=== PATIENT | male | born 1965 | race Caucasian/White ===

== ENCOUNTER → 2024-06-14 06:39 | Day surgery (SDC) | payer OTHER, SELFPAY | LOC: GI 06:39 | PROVIDERS: ATTENDING PHYSICIAN Specialist | DX: Z12.11 Encounter for screening for malignant neoplasm of colon (principal); D12.2 Benign neoplasm of ascending colon | CPT/HCPCS: 45385; 88305 ==

== ENCOUNTER → 2024-12-20 12:26 | Outpatient (REF) | payer OTHER, SELFPAY | LOC: HWRAD 12:26 | PROVIDERS: ATTENDING PHYSICIAN Nurse Practitioner Family | DX: M25.511 Pain in right shoulder (principal) | CPT/HCPCS: 73030 ==

== ENCOUNTER 2025-03-14 06:25 | Outpatient (RCR) | payer OTHER, SELFPAY | END 2025-03-14 23:59 | disposition home or self-care (01) | LOC: RPT 06:25 | PROVIDERS: ATTENDING PHYSICIAN Nurse Practitioner Family; FAMILY PHYSICIAN Internal Medicine | DX: M25.511 Pain in right shoulder (principal); M75.81 Other shoulder lesions, right shoulder; Z73.6 Limitation of activities due to disability; M62.81 Muscle weakness (generalized) | CPT/HCPCS: 97010; 97110; 97112; 97140; 97162 ==

== ENCOUNTER 2025-04-12 14:02 | Outpatient (RCR) | payer OTHER, SELFPAY | END 2025-04-12 23:59 | disposition home or self-care (01) | LOC: RPT 14:02 | PROVIDERS: ATTENDING PHYSICIAN Nurse Practitioner Family; FAMILY PHYSICIAN Internal Medicine | DX: M25.511 Pain in right shoulder (principal); M75.81 Other shoulder lesions, right shoulder; Z73.6 Limitation of activities due to disability; M62.81 Muscle weakness (generalized) | CPT/HCPCS: 97010; 97110; 97112; 97140; 97530 ==